=== PATIENT | female | born 2005 | race Caucasian/White ===

== ENCOUNTER 2023-03-28 11:27 | Emergency (ER) | payer BC, SELFPAY ==
[2023-03-28 11:34] VITALS: BP 109/75; PULSE 94; RESP 16; TEMP 36.9; O2SAT 100
--- NOTE | 2023-03-28 11:38 | ED.EAR ---
HPI - Ear Problem General Chief complaint: Ear Stated complaint: Cotton stuck in left ear Time Seen by Provider: 03/28/23 11:39 Source: patient Mode of arrival: ambulatory Limitations: no limitations History of Present Illness HPI Narrative: patient is a 17-year-old female who presents with cotton stuck in left ear. Patient states she went to clean her ears out last night and cotton tip remained in ear. patient denies feeling a cotton and ear or any decrease in hearing but is concerned that there was cotton in her ear. Complaint: ear pain Related Data Home Medications Medication Instructions Recorded Confirmed No Home Medications 03/28/23 03/28/23 Allergies Allergy/AdvReac Type Severity Reaction Status Date / Time No Known Allergies Allergy Verified 03/28/23 11:36 Review of Systems Review of Systems: All systems reviewed & are unremarkable except as noted in HPI and below Constitutional: Constitutional: Denies body ache(s), Denies chills, Denies fever(s), Denies headache(s) and Denies malaise Eyes: Eyes: Denies blurry vision, Denies eye discharge and Denies irritation ENT: Denies otalgia, Denies headache(s), Denies nasal congestion, Denies nasal discharge, Denies sore throat and Reports other ( Possible cotton in ear) Cardiovascular: Cardiovascular: Denies chest pain, Denies edema, Denies palpitations and Denies dyspnea on exertion Respiratory: Respiratory: Denies cough and Denies dyspnea on exertion Gastrointestinal: Gastrointestinal: Denies abdominal pain, Denies diarrhea, Denies nausea and Denies vomiting Musculoskeletal: Musculoskeletal: Denies back pain, Denies arthralgias and Denies muscle weakness Integumentary/Breasts: Skin/Breast: Denies pruritus and Denies rash Neurologic: Denies headache(s) Psychiatric: Psychiatric: Reports no additional psychiatric complaints Endocrine: Endocrine: Denies palpitations PMFSH Past Medical History Medical History Anxiety Depression Eczema PTSD (post-traumatic stress disorder) Family History Family History Other Intracranial aneurysm Blood coagulation disorder Grandparent Acute myocardial infarction Mother Cerebrovascular accident Social History Social History Social History: Single Smoking status: Never smoker Alcohol intake: never Substance use: never Substance use type: does not use Lack of Transportation: No Lack of Food: Never True Current Housing: I Have Housing Concerned About Future Housing: No Difficulty Paying Gas/Electric Bills: No Difficulty Paying for Meds: No Currently Unemployed: No Education: Bachelor's Degree Difficulty w/ Childcare or Family Care: No Living arrangements: with family Occupation/Education: student Gender identity (if verbalized by the patient): Female Sexual Orientation (if Verbalized by the Patient): Straight or Heterosexual Spiritual care concerns: No Agree to blood products: Yes Comments At time of signature, agree with nursing past medical, surgical, social and family history. There is no relevant family history pertinent to the presenting complaint? Exam Const: General: cooperative, healthy appearing, no acute distress and well nourished Nutritional Appearance: well nourished Orientation/consciousness: patient oriented x3 Limitations: no limitations HENMT: Head: normal to inspection, normocephalic and atraumatic Ears: hearing grossly normal bilaterally, TM's normal bilaterally, EAC's normal, no periauricular adenopathy and other (no foreign bodies present in either ear canal) Face/Nose/Sinus: Normal external nose present, Normal nares present, Normal nasal mucous membranes and turbinates present, No nasal discharge present, normal facial exam and sinuses nontender Face and sinus: nor
== END 2023-03-28 11:47 | disposition home or self-care (01) ==
PROVIDERS: Emergency Provider Nurse Practitioner Family
DX: Z71.1 Person with feared health complaint in whom no diagnosis is made (principal)
CPT/HCPCS: 99211; G0463

== ENCOUNTER 2023-04-26 10:31 | Outpatient (CLI) | payer BC, SELFPAY | END 2023-04-26 10:32 | disposition home or self-care (01) | LOC: ANHLAB 10:32 | PROVIDERS: Visit Provider Student in an Organized Health Care Education/Training Program | DX: E28.2 Polycystic ovarian syndrome (principal) | CPT/HCPCS: 36415; 84436; 84443 ==